=== PATIENT | female | born 2000 | race Caucasian/White ===

== ENCOUNTER 2020-06-23 12:09 | Outpatient (CLI) | payer OTHER | END 2020-06-23 12:19 | disposition home or self-care (01) | LOC: RAD 12:09 | DX: M25.572 Pain in left ankle and joints of left foot (principal) ==

== ENCOUNTER → 2020-07-15 | Outpatient (CLI) | payer OTHER | END | disposition home or self-care (01) | LOC: RAD 10:15 | PROVIDERS: ATTEND Orthopaedic Surgery | DX: S82.432A Displaced oblique fracture of shaft of left fibula, initial encounter for closed fracture (principal) ==

== ENCOUNTER 2020-07-29 09:08 | Outpatient (CLI) | payer OTHER | END 2020-07-29 09:17 | disposition home or self-care (01) | LOC: RAD 09:08 | PROVIDERS: ATTEND Orthopaedic Surgery | DX: S82.432D Displaced oblique fracture of shaft of left fibula, subsequent encounter for closed fracture with routine healing (principal) ==

== ENCOUNTER → 2020-09-10 | Outpatient (CLI) | payer OTHER | END | disposition home or self-care (01) | LOC: RAD 09:35 | PROVIDERS: ATTEND Orthopaedic Surgery | DX: M25.561 Pain in right knee (principal) ==

== ENCOUNTER 2021-04-14 09:34 | Outpatient (CLI) | payer OTHER | END 2021-04-14 09:47 | disposition home or self-care (01) | LOC: RAD 09:34 | PROVIDERS: ATTEND Orthopaedic Surgery | DX: M79.605 Pain in left leg (principal) ==

== ENCOUNTER 2021-04-14 11:00 | Outpatient (CLI) | payer OTHER | END 2021-04-14 11:08 | disposition home or self-care (01) | LOC: LAB 11:00 | PROVIDERS: ATTEND Orthopaedic Surgery | DX: M79.605 Pain in left leg (principal) ==